=== PATIENT | female | born 1985 | race Caucasian/White ===

== ENCOUNTER 2017-12-30 04:23 | Inpatient (IN) | payer OTHER ==
[~2017-12-30] VITALS: Ht 167.6 cm; Wt 85.5 kg
[2017-12-30] VITALS (11 sets, daily range): BP systolic 98–132; BP diastolic 59–76
[~2017-12-30 04:23] MED LIST: CAVAN-FOLATE D1 EACH PO; CLARITIN10 M3 PO; ENDOCET 5-3251 EACH PO; IBUPROFEN800 MG PO; Motrin PO; PRENATAL TABLE1 EAC3 PO; Percocet 5/325,Endoc PO; ZOFRAN4 MG PO
[2017-12-30] MEDS ORDERED: ACYCLOVIR400 MG PO (04:40)
[2017-12-30] MEDS ORDERED: AMOXICILLIN875 MG PO (04:42)
[2017-12-30 06:20] LABS: BASOPHIL (%) 0.3 % (0-1); EOSINOPHIL (%) 0.3 % (0-5); HEMATOCRIT 36.1 % (36.0-46.0); HEMOGLOBIN 11.4 G/DL (11.9-15.5); IMMATURE GRANULOCYTE (%) 0.4 % (0.0-0.7); MCH 27.1 PG (29.0-34.0); MCHC 31.6 G/DL (30.0-36.0); MONOCYTE (%) 9.8 % (3-12); MONOCYTE COUNT 0.9 K/uL (0-0.8); NEUTROPHIL (%) 78.2 % (45-76); NEUTROPHIL COUNT 7.1 K/uL (1.8-6.4); PLATELET COUNT 206 K/uL (156-360); RBC DIS.WIDTH-CV 15.5 % (11.8-14.6); RBC DIS.WIDTH-SD 47.7 % (39-53); WHITE BLOOD COUNT 9.2 K/uL (4.1-10.2)
[2017-12-30] MEDS ORDERED: IBUPROFEN800 MG PO (12:29)
[2017-12-31 07:34] VITALS: BP 123/70
== END 2017-12-31 15:20 | disposition home or self-care (01) | DRG 774 ==
LOC: LDRP-OP 04:23 → 2WEST 04:24
PROVIDERS: Nurse Practitioner
PROC: 10E0XZZ Delivery of Products of Conception, External Approach (ICD-10-PCS; principal; 2017-12-30)
DX: O99.52 Diseases of the respiratory system complicating childbirth (principal); J06.9 Acute upper respiratory infection, unspecified; J32.9 Chronic sinusitis, unspecified; O98.52 Other viral diseases complicating childbirth; B00.1 Herpesviral vesicular dermatitis; Z3A.39 39 weeks gestation of pregnancy; Z37.0 Single live birth
CPT/HCPCS: 85025; J2590